=== PATIENT | male | born 1990 | race Caucasian/White ===

== ENCOUNTER 2016-11-18 09:29 | Emergency (ER) | payer BC ==
[~2016-11-18] VITALS: Ht 180.3 cm; Wt 70.9 kg
[2016-11-18 09:34] VITALS: TEMP 36.7; Ht 180.3 cm; Wt 70.9 kg
--- NOTE | 2016-11-18 10:09 | EMERGENCY ROOM VISIT NOTE ---
History Report prepared by Andrea: Marisol Younger Under the Supervision of: Dr. Michael Ferraro M.D. First contact with patient: 09:52 Chief Complaint: TESTICULAR PAIN Stated Complaint: TESTICULAR PAIN Nursing Triage Summary: Noticed dull 2/10 pain yesterday afternoon with intermittent sharp 7/10 pain every 20 minutes. Today more often than yesterday with the sharp exacerbations. Initial pain was severe, no strenuous activity at time of onset. Had US 2 years ago, found small cyst around one of testicles. History of Present Illness The patient is a 26 year old male who presents to the Emergency Room with complaints of intermittent left testicular pain that began yesterday afternoon. He currently rates his discomfort as a 2/10 in severity. The patient states that yesterday his pain began suddenly, noting that the pain was rated as a 7-8/ 10 in severity. He states that the pain caused him to double over, but reports that he has had a dull pain since then. The patient states that his pain is worsened with movement or extended periods of sitting. He denies any erythema, swelling, injury, or overuse. The patient states that he has had pain in the past in his testicles and after an ultrasound he was found to have a small cyst. The patient denies any hematuria, abdominal pain, or back pain. He does report that he saw [email or web address] in [place] after difficulty with dribbling after voiding. The patient reports that he can elicit pain with palpation. He states that he is healthy otherwise. The patient denies any penile lesions or discharge. Source of History: patient Onset: yesterday afternoon Position: other (left testicular) Symptom Intensity: 2/10 Quality: dull Timing: intermittent Modifying Factors (Worsening): movement, other (palpation, extending periods of sitting) Associated Symptoms: No abdominal pain, No back pain, No urinary symptoms Review of Systems See HPI for pertinent positives & negatives. A total of 10 systems reviewed and were otherwise negative. Past Medical & Surgical Surgical Problems: (1) [place] teeth removed Old medical records were attempted to be reviewed but there are no old records at this hospital. Nurse's notes were reviewed and I agree with. Family History Diabetes mellitus FH: heart disease FH: lung disease FHx: cancer Hypertension Kidney disease Kidney stones Social History Smoking Status: Never Smoker Smokeless Tobacco Use: No Alcohol Use: occasionally Marital Status: single Housing Status: lives with roommate Occupation Status: student Current/Historical Medications No Active Prescriptions or Reported Meds Allergies Coded Allergies: No Known Allergies (Unverified , 11/18/16) Physical Exam Vital Signs Date Time Temp Pulse Resp B/P (MAP) Pulse Ox O2 Delivery O2 Flow Rate FiO2 11/18/16 11:17 55 16 111/60 99 Room Air 11/18/16 09:34 36.7 72 20 121/79 94 Room Air Physical Exam General: Well developed well nourished, non-ill appearing young male, in no acute distress, breathing comfortably on room air. Normal speech HEENT: Normal cephalic atraumatic. Pupils are equal round and reactive to light. Extraocular movements are intact. Oropharynx is pink with moist mucous membranes. No swelling of the mouth lips or tongue. Neck: Supple with a midline trachea. No meningeal signs or stiffness, no JVD or bruits. No Stridor. Chest: Clear to auscultation bilaterally. No wheezes or rhonchi. No increased work of breathing. Heart: regular rate and rhythm. Abdomen: Soft nontender, nondistended without rebound guarding or rigidity. Gu: Normal male genitalia, no penile lesions or evidence of hernia. Mild tenderness along epididymis. Extremities: No cyanosis clubbing or edema. No calf tenderness or assymetry Spine/Back. Non tender to palpation. No CVA tenderness Skin: Good turgor without rashes. Neurologic exam: Non-focal, ambulating without difficulty Medical Decision & Procedures ER Provider Diagnostic Interpretation: US results as stated below per my review and radiologist interpretation: SCROTAL ULTRASOUND CLINICAL HISTORY: Testicular pain. COMPARISON STUDY: None. TECHNIQUE: Grayscale and color and duplex Doppler sonography of the scrotum was performed. FINDINGS: The right testis measures 4.8 x 2 x 3 cm and the left measures 4.5 x 3.1 x 2 cm. Color flow within each testis is symmetric. There is no testicular mass. There is no evidence of epididymitis. There are bilateral epididymal cysts and a small left varicocele. There is a small left hydrocele. IMPRESSION: 1. Normal sonographic appearance of the testes. No evidence of testicular torsion. 2. No evidence of epididymitis. 3. Small left varicocele and small left hydrocele. Electronically signed by: Jose Dexter M.D. 11/18/2016 10:40 AM Dictated Date/Time: 11/18/2016 10:38 AM Laboratory Results Test 11/18/16 10:05 Urine Color YELLOW Urine Appearance CLEAR (CLEAR) Urine pH 6.5 (4.5-7.5) Urine Specific [place] 1.021 (1.000-1.030) Urine Protein NEG (NEG) Urine Glucose (UA) NEG (NEG) Urine Ketones NEG (NEG) Urine Occult Blood NEG (NEG) Urine Nitrite NEG (NEG) Urine Bilirubin NEG (NEG) Urine Urobilinogen NEG (NEG) Urine Leukocyte Esterase NEG (NEG) Laboratory studies as stated above per my review. ED Course 0952: Past medical records reviewed. The patient was evaluated in room B12B, and a complete history and physical examination were performed. 1119: I reevaluated the patient and he is resting comfortably. I discussed the exam findings with him and I discussed the treatment plan. He verbalized complete understanding and agreement. He is ready to go home. Medical Decision Differentials include, but are not limited to; epididymitis, torsion, kidney stone, hernia This patient comes in as described above. He has intermittent sharp pain that is left worse with movement. On exam, he is mildly tender over his epididymis. There is no evidence of hernias is no redness or warmth or swelling or asymmetry. He is discharged. I did order an ultrasound as well as urinalysis. Ultrasound was unremarkable in terms of no evidence of torsion or epididymitis. There is a small varicocele and hydrocele. Potentially this could be causing some discomfort. Urinalysis was unremarkable. He is no evidence of hernia on exam. He is to use scrotal support and ibuprofen for pain return if increasing pain, worsening of symptoms, any new problems or concerns. Medication Reconciliation: I attest that I have personally reviewed the patient' s current medication list. Blood pressure Screening: Patient was found to have normal blood pressure on screening and does not require follow-up. Impression Primary Impression: Left testicular pain Scribe Attestation The scribe's documentation has been prepared under my direction and personally reviewed by me in its entirety. I confirm that the note above accurately reflects all work, treatment, procedures, and medical decision making performed by me. Departure Information Dispostion Home / Self-Care Prescriptions No Active Prescriptions or Reported Meds Referrals Walter Bailey M.D. (PCP) Forms HOME CARE DOCUMENTATION FORM, IMPORTANT VISIT INFORMATION, WORK / SCHOOL INSTRUCTIONS Patient Instructions My [facility] Additional Instructions Rest. Use supportive underwear. Use ibuprofen 400 mg every 6 hours, take with food Return if increasing pain or swelling, any new problems or concerns. Follow-up with your doctor on Monday for recheck or return to ER over the weekend if symptoms
[2016-11-18 10:31] LABS: URINE APPEARANCE CLEAR (CLEAR); URINE BILIRUBIN NEG (NEG); URINE COLOR YELLOW; URINE NITRITE NEG (NEG); URINE PH 6.5 (4.5-7.5); URINE SPECIFIC GRAVITY 1.021 (1.000-1.030); UROBILINOGEN NEG (NEG)
[2016-11-18 10:40] LABS: MANUAL MICROSCOPIC REQUIRED? NO; REVIEW REQ? NO
--- NOTE | 2016-11-18 10:41 | DIAGNOSTIC IMAGING REPORT ---
SCROTAL ULTRASOUND CLINICAL HISTORY: Testicular pain. COMPARISON STUDY: None. TECHNIQUE: Grayscale and color and duplex Doppler sonography of the scrotum was performed. FINDINGS: The right testis measures 4.8 x 2 x 3 cm and the left measures 4.5 x 3.1 x 2 cm. Color flow within each testis is symmetric. There is no testicular mass. There is no evidence of epididymitis. There are bilateral epididymal cysts and a small left varicocele. There is a small left hydrocele. IMPRESSION: 1. Normal sonographic appearance of the testes. No evidence of testicular torsion. 2. No evidence of epididymitis. 3. Small left varicocele and small left hydrocele. Electronically signed by: Jose Dexter M.D. 11/18/2016 10:40 AM Dictated Date/Time: 11/18/2016 10:38 AM
[2016-11-18 11:17] VITALS: BP 111/60; PULSE 55; O2SAT 99
== END 2016-11-18 11:29 | disposition home or self-care (01) ==
LOC: C.EDB 09:31
DX: N50.812 Left testicular pain (principal); I86.1 Scrotal varices; N43.3 Hydrocele, unspecified; Z83.3 Family history of diabetes mellitus; Z82.49 Family history of ischemic heart disease and other diseases of the circulatory system; Z84.1 Family history of disorders of kidney and ureter

== ENCOUNTER → 2017-06-26 | Outpatient (CLI) | payer OTHER ==
[2017-06-26 19:04] LABS: HEMATOCRIT 41.8 % (42-52); HEMOGLOBIN 14.6 g/dL (14.0-18.0); MEAN CELL VOLUME 86.7 fL (80-100); MEAN CORPUSCULAR HEMOGLOBIN 30.3 pg (25-34); MEAN CORPUSCULAR HGB CONC 34.9 g/dl (32-36); MEAN PLATELET VOLUME 8.8 fL (7.4-10.4); PLATELET COUNT 200 K/uL (130-400); RED CELL DISTRIBUTION WIDTH CV 13.4 % (11.5-14.5); RED CELL DISTRIBUTION WIDTH SD 42.5 fL (36.4-46.3)
[2017-06-26 19:26] LABS: ALBUMIN 4.2 gm/dl (3.4-5.0); TOTAL PROTEIN 7.8 gm/dl (6.4-8.2)
== END | disposition home or self-care (01) ==
LOC: C.LAB 18:48
PROVIDERS: ATTEND Student in an Organized Health Care Education/Training Program
DX: J02.9 Acute pharyngitis, unspecified (principal)

== ENCOUNTER 2017-07-02 10:07 | Emergency (ER) | payer OTHER ==
[2017-07-02 10:21] VITALS: TEMP 37.2
[2017-07-02] MEDS ORDERED: PRED20TA PO (10:29)
[2017-07-02] MEDS ORDERED: ACETAMINOPHEN 500 MG TAB PO STA (10:43)
[2017-07-02] MEDS ORDERED: DEXAMETHASONE INJ 10 MG in SYRINGE 0 ML IV STA (10:43)
[2017-07-02] MEDS ORDERED: CLINDAMYCIN 600 MG/54 ML D5W IV STA (10:43)
--- NOTE | 2017-07-02 10:43 | EMERGENCY ROOM VISIT NOTE ---
History Report prepared by Andrea: Daisy Piedra Under the Supervision of: Dr. Van An M.D. First contact with patient: 10:36 Chief Complaint: THROAT PAIN/INJURY Stated Complaint: MONO-TONSILS SWOLLEN, BLEEDING, PUS, CANT EAT/DRIN History of Present Illness The patient is a 26 year old male who presents to the Emergency Room with complaints of worsening throat pain beginning 4 days ago. He rates his pain at a 9/10. The patient reports that he was diagnosed with mononucleosis 5 days ago and that he has been given steroids. He reports that it is painful to swallow anything-food, liquid, and saliva. The patient states that he did not take Tylenol today. He reports that yesterday he was spitting up blood. Source of History: patient Onset: 4 days ago Position: throat Symptom Intensity: rated at a 9/10 Timing: worsening Note: additional symptom: spitting up blood Review of Systems See HPI for pertinent positives & negatives. A total of 10 systems reviewed and were otherwise negative. Past Medical & Surgical Surgical Problems: (1) [place] teeth removed Family History Diabetes mellitus FH: heart disease FH: lung disease FHx: cancer Hypertension Kidney disease Kidney stones Social History Smoking Status: Never Smoker Alcohol Use: occasionally Marital Status: single Housing Status: lives with roommate Occupation Status: student Current/Historical Medications Scheduled Clindamycin HCl (Clindamycin HCl), 1 CAP PO TID Prednisone (Prednisone), 20 MG PO TAPER Scheduled PRN Hydrocodone/Acetaminophen 5MG/325MG ([place] 5MG/325MG), 1-2 TABLET PO Q6H PRN for Pain Allergies Coded Allergies: No Known Allergies (Unverified , 07/02/17) Physical Exam Vital Signs Date Time Temp Pulse Resp B/P (MAP) Pulse Ox O2 Delivery O2 Flow Rate FiO2 07/02/17 12:53 70 20 118/68 98 07/02/17 12:15 Room Air 07/02/17 12:08 78 18 120/71 98 Room Air 07/02/17 10:21 37.2 119 20 125/67 99 Room Air Physical Exam GENERAL: Patient is a healthy-appearing well-nourished male HEAD: Normocephalic atraumatic EYES: Ocular movements intact pupils equal and react to light OROPHARYNX mucous membranes are moist. Fullness in right peritonsillar area. No stridor. No trouble swallowing his own saliva. NECK: Supple no nuchal rigidity CHEST: Good equal expansion LUNGS: Clear and equal to auscultation CARDIAC: Normal S1 and S2 ABDOMEN: Soft nontender no guarding BACK: No CVA tenderness EXTREMITIES: No pain upon palpation normal muscle strength in all groups no clubbing cyanosis or edema NEURO: Patient is following commands and answering questions appropriately. Alert and oriented x3 Cranial Nerves 2-12 grossly intact Medical Decision & Procedures Laboratory Results 07/02/17 11:10 Red Blood Count 4.58, Mean Corpuscular Volume 86.5, Mean Corpuscular Hemoglobin 30.1, Mean Corpuscular Hemoglobin Concent 34.8, Mean Platelet Volume 9.0 07/02/17 11:10 Test 07/02/17 11:10 White Blood Count 7.83 K/uL (4.8-10.8) Red Blood Count 4.58 M/uL (4.7-6.1) Hemoglobin 13.8 g/dL (14.0-18.0) Hematocrit 39.6 % (42-52) Mean Corpuscular Volume 86.5 fL (80-100) Mean Corpuscular Hemoglobin 30.1 pg (25-34) Mean Corpuscular Hemoglobin Concent 34.8 g/dl (32-36) Platelet Count 189 K/uL (130-400) Mean Platelet Volume 9.0 fL (7.4-10.4) RDW Standard Deviation 42.8 fL (36.4-46.3) RDW Coefficient of Variation 13.5 % (11.5-14.5) Neutrophils % (Manual) 66.6 % Lymphocytes % (Manual) 7.9 % Variant Lymphocytes % (manual) 16.7 % Monocytes % (Manual) 8.8 % Neutrophils # (Manual) 5.21 K/uL (1.4-6.5) Total Absolute Neutrophils 5.21 K/uL (1.4-6.5) Lymphocytes # (Manual) 0.62 K/uL (1.2-3.4) Absolute Variant Lymphocytes 1.31 K/uL Total Absolute Lymphocytes 1.93 K/uL (1.2-3.4) Monocytes # (Manual) 0.69 K/uL (0.11-0.59) Anion Gap 8.0 mmol/L (3-11) Estimated GFR () 147.8 Estimated GFR (Non- 127.5 BUN/Creatinine Ratio 20.2 (10-20) Calcium Level 8.7 mg/dl (8.5-10.1) Total Bilirubin 0.5 mg/dl (0.2-1) Direct Bilirubin 0.1 mg/dl (0-0.2) Aspartate Amino Transf (AST/SGOT) 36 U/L (15-37) Alanine Aminotransferase (ALT/SGPT) 154 U/L (12-78) Alkaline Phosphatase 67 U/L (45-117) Total Protein 7.3 gm/dl (6.4-8.2) Albumin 3.6 gm/dl (3.4-5.0) Labs reviewed by ED physician. Medications Administered Medications (Trade) Dose Ordered Sig/Patricia Route Start Time Stop Time Status Last Admin Dose Admin Dexamethasone Sodium Phosphate 10 mg/Syringe 2.5 ml @ 1 mls/min NOW STAT IV 07/02/17 10:43 07/02/17 10:47 DC 07/02/17 11:42 1 MLS/MIN Clindamycin Phosphate (Cleocin 600mg/ 54ml D5W) 600 mg ONE STAT IV 07/02/17 10:43 07/02/17 10:47 DC 07/02/17 12:06 600 MG Ketorolac Tromethamine (Toradol Inj) 30 mg NOW STAT IV 07/02/17 11:38 07/02/17 11:41 DC 07/02/17 11:54 30 MG ED Course 1037: Past medical records reviewed. The patient was evaluated in room C10. A complete history and physical examination was performed. 1043: Ordered Clindamycin Phosphate 600 mg IV, Acetaminophen 1,000 mg PO, Dexamethasone Sodium Phosphate 10 mg/Syringe 2.5 ml @ 1 mls/min IV. 1047: Ordered Hycodan Syrup 5 ml PO. 1100: Nas Sweet PA-C discussed the patient's case with Dr. López-ENT. Dr. López will come to evaluate the patient. 1120: Ordered Dexamethasone Sodium Phosphate 10 mg. 1138: Ordered Toradol Inj 30 mg IV. 1140: Upon reexamination the patient is resting. I discussed results and treatment plan with the patient. He verbalizes agreement and understanding. The patient is ready for discharge. Medical Decision Differentials include: peritonsillar abscess, abscess, tonsillitis, and mononucleosis. This is a 26-year-old male who presents emergency department complaining of severe throat pain that radiates up into his jaw. Based on the patient's physical examination I did discuss the case with ear nose and throat who came in and saw the patient. An IV was established, the patient was given Decadron as well as clindamycin. He will follow-up with Ear nose and throat. Medication Reconcilliation Current Medication List: was personally reviewed by me Blood Pressure Screening Patient's blood pressure: Normal blood pressure Consults Time Called: 1040 Consulting Physician: Dr. López- ENT Returned Call: 1100 Nas Sweet PA-C discussed the patient's case with Dr. López-EDMUNDO. Dr. López will come to evaluate the patient. Impression Primary Impression: Peritonsillar abscess Scribe Attestation The scribe's documentation has been prepared under my direction and personally reviewed by me in its entirety. I confirm that the note above accurately reflects all work, treatment, procedures, and medical decision making performed by me. Departure Information Dispostion Home / Self-Care Prescriptions Hydrocodone/Acetaminophen 5MG/325MG ([place] 5MG/325MG) Tab 1-2 TABLET PO Q6H Y for Pain, #12 TAB For Initial Treatment Prov: Nas Sweet,P.A. 07/02/17 Clindamycin HCl (Clindamycin HCl) 300 Mg Cap 1 CAP PO TID for 7 Days, #21 CAP Prov: Nas Sweet,P.A. 07/02/17 Referrals Walter Bailey M.D. (PCP) Manas López M.D. Forms HOME CARE DOCUMENTATION FORM, IMPORTANT VISIT INFORMATION, WORK / SCHOOL INSTRUCTIONS Patient Instructions My [facility], Peritonsillar Abscess Additional Instructions Clindamycin 300 mg 3 times a day 7 days Tylenol and Motrin every 6 hours as needed for discomfort Continue your prednisone daily [place] 1 to 2 tablets every 6 hours as needed for severe pain-no driving. [place] gargles several times per day Take a probiotic daily to limit GI side effects of antibiotics Call Dr. López's office on Monday for follow-up on Monday Maintain hydration Return to the ED for any other concerns
[2017-07-02] MEDS ORDERED: HYDROCODONE/HOMATROPINE SYRUP 5MG/1.5MG 5ML UDP PO STA (10:47)
[2017-07-02] MEDS ORDERED: DEXAMETHASONE **PF** INJ 10 MG/ML VIAL ONE (11:20)
[2017-07-02] MEDS ORDERED: CLC/300 PO (11:32)
[2017-07-02] MEDS ORDERED: HYDR-5688 PO (11:32)
[2017-07-02 11:38] LABS: HEMATOCRIT 39.6 % (42-52); HEMOGLOBIN 13.8 g/dL (14.0-18.0); MEAN CELL VOLUME 86.5 fL (80-100); MEAN CORPUSCULAR HEMOGLOBIN 30.1 pg (25-34); MEAN CORPUSCULAR HGB CONC 34.8 g/dl (32-36); PLATELET COUNT 189 K/uL (130-400); RED CELL DISTRIBUTION WIDTH CV 13.5 % (11.5-14.5); RED CELL DISTRIBUTION WIDTH SD 42.8 fL (36.4-46.3); WHITE BLOOD COUNT 7.83 K/uL (4.8-10.8)
[2017-07-02] MEDS ORDERED: KETOROLAC TROMETHAMINE 30 MG/ML VIAL IV STA (11:38)
[2017-07-02 11:46] LABS: ALBUMIN 3.6 gm/dl (3.4-5.0); ALT/SGPT 154 U/L (12-78); BLOOD UREA NITROGEN 15 mg/dl (7-18); CALCIUM 8.7 mg/dl (8.5-10.1); CARBON DIOXIDE 27 mmol/L (21-32); CREATININE 0.75 mg/dl (0.60-1.40); GLUCOSE 91 mg/dl (70-99); POTASSIUM 3.6 mmol/L (3.5-5.1); SODIUM 140 mmol/L (136-145)
[2017-07-02 11:49] LABS: ALKALINE PHOSPHATASE 67 U/L (45-117); AST/SGOT 36 U/L (15-37); TOTAL PROTEIN 7.3 gm/dl (6.4-8.2)
[2017-07-02 12:53] VITALS: BP 118/68; PULSE 70; O2SAT 98
--- NOTE | 2017-07-02 21:11 | ENT CONSULTATION ---
DATE OF CONSULTATION: 07/02/2017 INDICATION FOR CONSULTATION: Rule out peritonsillar abscess. 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 Illness has involved a sore throat and he was diagnosed with mononucleosis about 6 days ago. He has been taking oral steroids, but no antibiotics. He decided to come to the ED today because he was having such difficulty swallowing. There has been no airway distress. As far as past medical history, review of systems it is all well documented in his ED record. OBJECTIVE: I examined him in Module C, bed #10, and he was awake and alert and conversant. He did have borderline trismus and borderline hot potato voice. There was no uvular deviation and there was marked exudate of both tonsils and there was fullness in the right peritonsillar area. There was no stridor. I sprayed the back of his throat with Hurricane spray and use a #18 gauge needle that removed about 2 mL of pus. This was sent for culture. ASSESSMENT AND PLAN: This is a 26-year-old man with both mononucleosis with concomitant tonsillitis and a right peritonsillar abscess. He is going to receive Decadron IV and continue with his oral steroids at home. He was also provided with IV clindamycin and will be taking clindamycin 300 mg t.i.d. He will take kefir or other probiotics to protect his gut. He will return to see me either tomorrow, July 03, or July 04 in my office. He knows to return to the ED if he feels worse. I discussed all this with Nas, the PA. I also discussed this with the patient. ZACHARY
== END 2017-07-02 12:55 | disposition home or self-care (01) ==
LOC: C.EDB 10:09 → C.EDC 12:55
DX: J36 Peritonsillar abscess (principal); B27.90 Infectious mononucleosis, unspecified without complication; Z83.3 Family history of diabetes mellitus; Z82.49 Family history of ischemic heart disease and other diseases of the circulatory system; Z80.9 Family history of malignant neoplasm, unspecified; Z84.1 Family history of disorders of kidney and ureter